=== PATIENT | male | born 1995 | race Caucasian/White ===

== ENCOUNTER 2022-06-18 08:12 | Emergency (ER) | payer SELFPAY ==
--- NOTE | 2022-06-18 08:13 | W.ED.SEIZURE ---
HPI - Seizure General: Chief Complaint: Seizure Stated Complaint: SEIZURE Time Seen by Provider: 06/18/22 08:13 Source: patient Mode of arrival: EMS History of Present Illness: HPI Narrative: 27-year-old male with reported history of seizure disorder brought in by EMS with complaints of a seizure. Evidently he had been at rehab and got out yesterday spent the night with some friends. They reported at least one witnessed seizure EMS gave him Ativan in route. No other family members present. She history of methamphetamine and alcohol abuse. At the time he is seen he is postictal and unable to contribute to his history. EMS reports that were tonic-clonic like seizures. MD complaint: seizure Onset (ago): minute(s) Description of Episode: tonic-clonic movement Witnessed: Yes - by Bystander Seizure History: Yes Place: Home Associated symptoms: Deny chest pain, chills, confusion, cough, diaphoresis, fever(s), anorexia, malaise, rash, short of breath, syncope or weakness Review of Systems Const: Denies: fever(s), chills, malaise or diaphoresis ENMT: Denies: throat pain, ear or mastoid pain, nasal discharge or nasal congestion Card: Denies: chest pain or syncope Resp: Denies: dyspnea, productive cough or non-productive cough GI: Denies: abdominal pain, nausea, vomiting, hematemesis, coffee ground emesis, diarrhea, constipation, bloating, hematochezia or melena : Denies: flank pain, dysuria, urinary frequency or urinary urgency Skin/Breast: Denies: rash or pruritus Neuro: Denies: confusion PFSH ED PFSH: Medical History (Updated 06/18/22 @ 12:05 by Joesph Mijares DO) Seizure disorder Physical Exam Const: GENERAL APPEARANCE: cooperative and comfortable ORIENTATION/CONSCIOUSNESS: Yes awake HENMT: COMMON NORMALS: normocephalic, atraumatic and hearing grossly normal bilaterally HEAD & SCALP: normocephalic and atraumatic Resp: COMMON NORMALS: normal respiratory effort, No retractions, No use of accessory muscles and clear to auscultation bilaterally AUSCULTATION: clear to auscultation bilaterally Cardio: COMMON NORMALS: regular rate, regular rhythm and No murmurs present (Cardio) RATE: regular rate RHYTHM: regular rhythm GI: COMMON NORMALS: Soft to palpation and No hepatosplenomegaly present AUSCULTATION: Yes normoactive bowel sounds PALPATION: Yes Soft to palpation, No Tenderness to palpation present (GI), No Guarding due to palpation present (GI) and Yes No hepatosplenomegaly present Extremity: COMMON NORMALS: normal to inspection, capillary refill normal, no clubbing, cyanosis or edema, no calf tenderness and no pedal edema Skin: COMMON NORMALS: no rashes or lesions noted GENERAL SKIN EXAM: no rashes or lesions noted Course Vital Signs: Vital signs: Vital Signs Temperature 98.9 F 06/18/22 08:16 Pulse Rate 99 06/18/22 10:01 Respiratory Rate 26 H 06/18/22 08:16 Blood Pressure 141/104 06/18/22 10:01 Pulse Oximetry 95 06/18/22 08:30 Oxygen Delivery Me thod 06/18/22 08:16 MDM - Seizure MDM Narrative Medical decision making narrative: Labs imaging reviewed. Discussed with the patient the ultrasound finding he is awake and alert postictal phase is passed he has a known history of seizure disorder he is not currently on any medications given a gram of Keppra here discharged home with 500 twice daily left Case management make arrangements for follow-up Medical Records Attestation: I reviewed the patient's medical records. Lab Data Attestation: I reviewed the patient's lab results. 06/18/22 08:30 06/18/22 08:30 Labs: Laboratory Results WBC 12.2 10^3/uL (4.0-10.0) H 06/18/22 08:30 RBC 5.13 10^6/uL (4.1-5.3) 06/18/22 08:30 Hgb 16.0 g/dL (11.7-16.6) 06/18/22 08:30 Hct 46.4 % (42.0-52.0) 06/18/22 08:30 MCV 90.4 fl (80-94) 06/18/22 08:30 MCH 31.2 pg (28.0-34.0) 06/18/22 08:30 MCHC 34.5 g/dL (30.0-36.0) 06/18/22 08:30 RDW 13.1 % (12.1-15.1) 06/18/22 08:30 Plt Count 251 10^3/cmm (130-400) 06/18/22 08:30 MPV 10.1 fL (7.4-10.4) 06/18/22 08:30 Neut % (Auto) 83.7 % 06/18/22 08:30 Lymph % (Auto) 6.1 % 06/18/22 08:30 [place] % (Auto) 9.3 % 06/18/22 08:30 Eos % (Auto) 0.0 % 06/18/22 08:30 Baso % (Auto) 0.2 % 06/18/22 08:30 Neut # (Auto) 10.17 10^3/uL (1.8-7.7) H 06/18/22 08:30 Lymph # (Auto) 0.7 10^3/uL (0.8-4.8) L 06/18/22 08:30 [place] # (Auto) 1.1 10^3/uL (0.2-0.9) H 06/18/22 08:30 Eos # (Auto) 0.0 10^3/uL (0.0-0.8) 06/18/22 08:30 Baso # (Auto) 0.0 10^3/uL (0.0-0.1) 06/18/22 08:30 Nucleated RBC % (auto) 0 % 06/18/22 08:30 Nucleated RBCs # 0.0 /100WBC 06/18/22 08:30 Sodium 133 mmol/L (136-145) L 06/18/22 08:30 Potassium 4.4 mmol/L (3.5-5.1) 06/18/22 08:30 Chloride 90 mmol/L (98-107) L 06/18/22 08:30 Carbon Dioxide 20 mmol/L (22-29) L 06/18/22 08:30 Anion Gap 27.4 (5-19) H 06/18/22 08:30 BUN 11 mg/dL (6-20) 06/18/22 08:30 Creatinine 0.7 mg/dL (0.7-1.2) 06/18/22 08:30 GFR Calculation 134.3 mL/min (90-130) H 06/18/22 08:30 Glucose 176 mg/dL (65-115) H 06/18/22 08:30 Calculated Osmolality 280 mOsm/kg (285-295) L 06/18/22 08:30 Calcium 9.5 mg/dL (8.5-10.5) 06/18/22 08:30 Total Bilirubin 2.7 mg/dL (0.15-1.2) H 06/18/22 08:30 AST 200 U/L (0-40) H 06/18/22 08:30 ALT 310 U/L (0-41) H 06/18/22 08:30 Alkaline Phosphatase 85 U/L (40-130) 06/18/22 08:30 Creatine Kinase 1100 U/L (39-308) H* 06/18/22 08:30 Total Protein 6.7 g/dL (6.6-8.7) 06/18/22 08:30 Albumin 4.5 g/dL (3.5-5.2) 06/18/22 08:30 Globulin 2.2 g/dL (1.3-4.6) 06/18/22 08:30 Ethyl Alcohol < 10 mg/dL (0-10) 06/18/22 08:30 Discharge Plan Discharge Patient Disposition: Home Clinical Impression: Seizure disorder Condition: Stable Prescriptions: New Keppra 500 mg tablet 500 mg PO BID Qty: 60 0RF Discharge Orders: Discharge ED (Routine); Ordered 06/18/22 Ordered By: Joesph Mijares Referrals: [facility] [Other] Patient Instructions: Opioid Safety, Pain Management Activity Restrictions/Additional Instructions: You are seen today for seizure. Your liver enzymes and bilirubin are elevated as well this is likely related to your chronic drinking there is evidence of cirrhosis on your ultrasound testing. Recommend that you follow-up with neurology Case management make arrangements for outpatient follow-up. Return if you have recurrent seizures. Avoid any alcohol or methamphetamine. Coding Level of Care Code ED Tape Control Skin Or [employer] Operator for Keith Abebe
[2022-06-18 08:16] VITALS: BP 120/99; PULSE 97; RESP 26; TEMP 37.2; O2SAT 97; BMI 21.5
[2022-06-18 08:30] VITALS: BP 120/99; PULSE 98; O2SAT 95
--- NOTE | 2022-06-18 08:42 | PC.NURSE ---
attempted to assist pt in utilizing urinal to obtain urine sample. pt able to stand with 1 assist. pt unable to urinate into urinal. seizure pads placed on rails for safety.
[2022-06-18 08:59] LABS: Basophils % 0.2 %; Hematocrit 46.4 % (42.0-52.0); Lymphocytes # 0.7 10^3/uL (0.8-4.8); Lymphocytes % 6.1 %; Mean Corpuscular HGB Conc 34.5 g/dL (30.0-36.0); Mean Corpuscular Hemoglobin 31.2 pg (28.0-34.0); Mean Corpuscular Volume 90.4 fl (80-94); Mean Platelet Volume 10.1 fL (7.4-10.4); Monocytes # 1.1 10^3/uL (0.2-0.9); Monocytes % 9.3 %; Neutrophils # 10.17 10^3/uL (1.8-7.7); Neutrophils % 83.7 %; Nucleated Red Blood Cells % 0 %; Platelet Count 251 10^3/cmm (130-400); Red Blood Count 5.13 10^6/uL (4.1-5.3); Red Cell Distribution Width 13.1 % (12.1-15.1); White Blood Count 12.2 10^3/uL (4.0-10.0)
--- NOTE | 2022-06-18 09:08 | PC.NURSE ---
SEIZURE PADS APPLIED TO BED RAILS PT ATTEMPTED TO VOID BUT WAS UNABLE TO DO SO SITTER PRESENT FOR PT DUE TO PT PULLING AT IV LINE AND LEADS ATTEMPTING TO REMOVE THEM
[2022-06-18 09:12] LABS: Alanine Aminotransferase 310 U/L (0-41); Albumin Level 4.5 g/dL (3.5-5.2); Alkaline Phosphatase 85 U/L (40-130); Anion Gap 27.4 (5-19); Aspartate Amino Transferase 200 U/L (0-40); Blood Urea Nitrogen 11 mg/dL (6-20); Calcium 9.5 mg/dL (8.5-10.5); Carbon Dioxide 20 mmol/L (22-29); Chloride 90 mmol/L (98-107); Globulin 2.2 g/dL (1.3-4.6); Glomerular Filtration Rate 134.3 mL/min (90-130); Glucose 176 mg/dL (65-115); Osmolality Calculated 280 mOsm/kg (285-295); Potassium 4.4 mmol/L (3.5-5.1); Sodium 133 mmol/L (136-145); Total Bilirubin 2.7 mg/dL (0.15-1.2); Total Protein 6.7 g/dL (6.6-8.7)
[2022-06-18 09:43] LABS: Alcohol Level < 10 mg/dL (0-10); Creatine Phosphokinase 1100 U/L (39-308)
--- NOTE | 2022-06-18 09:46 | PC.NURSE ---
PT REFUSING TO STAY IN BED. PT REFUSING VITAL SIGNS AND MONITORING.
[2022-06-18] MEDS: sodium chloride 0.9% 1,000 ML 999 ML IV (09:53)
[2022-06-18 10:01] VITALS: BP 141/104; PULSE 99
--- NOTE | 2022-06-18 10:43 | USR_ITS ---
PROCEDURE INFORMATION: Exam: US Abdomen, Limited; Right Upper Quadrant Exam date and time: 06/18/2022 11:32 AM Age: 27 years old Clinical indication: Elevated liver enzymes. TECHNIQUE: Imaging protocol: Real time ultrasound of the abdomen with image documentation. Limited exam focused on the right upper quadrant. COMPARISON: No relevant prior studies available. FINDINGS: The hepatic parenchyma is echogenic. Liver is enlarged measuring 19 cm. The visualized IVC and aorta are grossly normal in caliber. No biliary ductal dilatation. The common bile duct measures 0.3 cm. No cholelithiasis. No gallbladder wall thickening or pericholecystic fluid. The right kidney measures 12.4 cm. No suspicious mass or hydronephrosis. Pancreas is largely obscured by overlying bowel gas. US/US gall bladder [id number] IMPRESSION: Hepatomegaly with diffuse hepatic steatosis.
[2022-06-18 12:11] LABS: Amphetamines Screen Urine Positive (Negative); Barbiturates Screen Urine Negative (Negative); Benzodiazepines Screen Urine Positive (Negative); Cocaine Screen Urine Negative (Negative); Opiate Screen Urine Negative (Negative); PCP Screen Urine Negative (Negative); THC Screen Urine Negative (Negative)
[2022-06-18 12:12] LABS: Glucose Urine UA Norm (Normal); Protein Urine 1+ (Negative); Urine Appearance Hazy (CLEAR); Urine Color Dark Yellow (Yellow); pH Urine 6 (5-7)
[2022-06-18 12:13] LABS: Add Urine Culture? No; Add Urine Microscopic? YES; Amorphous Sediment Urine 2+ /hpf; Bacteria Urine TRACE /hpf; Bilirubin Urine 1+ (Negative); Blood Urine Neg (Negative); Ketones Urine 3+ (Negative); Leukocyte Esterase Urine Negative (Negative); Mucus Urine TRACE /hpf; Nitrate Urine Negative (Negative); Urobilinogen Urine 4 mg/dL (Negative); WBC Urine 0-4 /hpf (0-5)
[2022-06-18 12:23] LABS: Lipase 44 U/L (13-60)
[2022-06-18 13:32] VITALS: BP 141/104; PULSE 99
--- NOTE | 2022-06-20 09:41 | DCPLANNER ---
Addendum entered by Scarlet Tolentino 07/08/22 09:37: This appointment was cancelled Addendum entered by Scarlet Tolentino 06/23/22 11:46: Patient has a follow up appointment scheduled for Wednesday, July 06, 2022 at 10:[address] Sánchez. Clinic will call patient with appointment information. Original Note: manager summer had message to schedule a follow up appointment for patient with neurology. manager summer sent patients information to the front office staff at neurology. Patients information will be printed and reviewed. Clinic will call patient with appointment information.
--- NOTE | 2022-06-21 15:34 | DCPLANNER ---
Addendum entered by Scarlet Tolentino 06/21/22 15:35: manager budget called patient due to no primary care physician - no answer at this time, unable to leave a voicemail for patient. Original Note: 06.19.22 - patient called due to no primary care physician - no answer at this time, unable to leave a voicemail for patient
== END 2022-06-18 13:34 | disposition home or self-care (01) ==
PROVIDERS: Emergency Provider Family Medicine
DX: G40.909 Epilepsy, unspecified, not intractable, without status epilepticus (principal); R74.8 Abnormal levels of other serum enzymes; E80.7 Disorder of bilirubin metabolism, unspecified
CPT/HCPCS: 76705; 80053; 80306; 80307; 81001; 82550; 83690; 85025; 96374; 99285; J1953; J7030